=== PATIENT | female | born 1970 ===

== ENCOUNTER 2018-09-12 07:43 | Outpatient (CLI) | payer OTHER | END 2018-09-12 07:44 | disposition home or self-care (01) | LOC: C.CTH 07:43 ==

== ENCOUNTER 2019-01-06 08:07 | Outpatient (CLI) | payer OTHER | END 2019-01-06 08:08 | disposition home or self-care (01) | LOC: C.PAT 08:07 | DX: J32.1 Chronic frontal sinusitis (principal) ==

== ENCOUNTER 2019-01-16 10:04 | Day surgery (SDC) | payer OTHER ==
[2018-10-27 14:15] VITALS: BMI 36.0
[2019-01-16] MEDS ORDERED: Acetaminophen-Codeine 300/30 mg Tab PO PRN (11:00)
[2019-01-16] MEDS ORDERED: Dextrose 5%/0.45% NS 1,000 ML IV SCH (11:00)
[2019-01-16] MEDS ORDERED: Propofol 10 mg/ml Inj (20 ML) ONE (12:23)
[2019-01-16] MEDS ORDERED: Midazolam 2 MG/2 ML VIAL ONE (12:23)
[2019-01-16] MEDS ORDERED: Succinylcholine Chloride 20 mg/ml Syr (5 ml) IV ONE (12:23)
[2019-01-16] MEDS ORDERED: ceFAZolin 1 gm in NS 1 GM/100 ML BAG IVPB ONE (12:31)
[2019-01-16] MEDS ORDERED: EPINEPHrine 1:1000 Nasal Sol(30mL) ONE (12:31)
[2019-01-16] MEDS ORDERED: Lactated Ringer's 1,000 ML IV SCH (13:30)
[2019-01-16] MEDS: HYDROmorphone 0.5 mg/0.5 ml ISec IVP PRN ×3 (13:33→13:53)
[2019-01-16 14:55] VITALS: RESP 18; TEMP 97.8
[2019-01-16 15:41] VITALS: BP 144/68; PULSE 78; O2SAT 97
--- NOTE | 2019-01-16 17:05 | OP ---
PROCEDURE DATE: 01/16/2019 PREOPERATIVE DIAGNOSIS: Right maxillary sinusitis. POSTOPERATIVE DIAGNOSIS: Right maxillary sinusitis. PROCEDURE: Endoscopic right maxillary antrostomy. SIGNIFICANT FINDINGS: Right maxillary antrum stenosed. DESCRIPTION OF PROCEDURE: The patient was brought into room, placed in supine position. Anesthesia was initiated through an ET tube. Adrenaline-soaked pledgets were inserted into the right nasal cavity, remained there for at 5 minutes and removed. Navigation was set and used throughout the case in order to ensure that the orbit was not entered. A zero-degree scope was inserted into the nasal cavity and the middle turbinate was medialized. A curved suction hooked up to navigation was used to locate the maxillary antrum which was noted to be stenosed and opened using forceps. Bleeding was controlled using adrenaline-soaked pledgets and the scope was removed. The patient was taken off anesthesia and taken to recovery room in stable manner. Oswaldo Cobb MD
== END 2019-01-16 15:40 | disposition home or self-care (01) ==
LOC: C.SDS 10:04
PROVIDERS: ATTEND Otolaryngology
DX: J32.0 Chronic maxillary sinusitis (principal)
CPT/HCPCS: 31256; J0690; J1170; J2001; J2250; J2704; J3010